=== PATIENT | male | born 1990 | race Caucasian/White ===

== ENCOUNTER 2021-05-25 08:20 | Emergency (ER) | payer BC, MEDICAID ==
[~2021-05-25] VITALS: Ht 172.7 cm; Wt 118.0 kg
[~2021-05-25 08:20] MED LIST: HYDR-3965 PO; PENI500T2 PO
[2021-05-25 08:46] VITALS: BP 162/112
== END 2021-05-25 08:58 | disposition home or self-care (01) ==
LOC: ER 08:20
DX: R05 Cough (principal); Z20.822 Contact with and (suspected) exposure to COVID-19; R50.9 Fever, unspecified; J45.909 Unspecified asthma, uncomplicated; Z88.0 Allergy status to penicillin; Z79.899 Other long term (current) drug therapy
CPT/HCPCS: 36415; 99283; U0003; U0005